=== PATIENT | male | born 1980 | race Hispanic/Latino ===

== ENCOUNTER 2017-09-04 20:36 | Emergency (ER) | payer OTHER ==
[~2017-09-04] VITALS: Ht 175.3 cm; Wt 90.7 kg
[~2017-09-04 20:36] MED LIST: LEVSIN/SL0.125 MG SL; MEDROL4 M2 PO; MOTRIN 600 MG600 MG PO; PROAIR HFA8.5 GM INH; ZOFRAN4 M1 SL
--- NOTE | 2017-09-04 20:59 | ED CARDIAC/CP/PALPITATIONS ---
History of Present Illness General Chief Complaint: General Adult Stated Complaint: "CP, RT SIDE EYE TWITCHING, RT SIDE JAW NUMB" Source: patient Exam Limitations: no limitations Vital Signs & Intake/Output Vital Signs & Intake/Output Vital Signs Date Time Temp Pulse Resp B/P B/P Pulse O2 O2 Flow FiO2 Mean Ox Delivery Rate 09/04 2140 98.2 108 20 137/66 99 Room Air 09/04 2044 98.0 115 20 146/94 98 Room Air ED Intake and Output 09/05 0000 09/04 1200 Intake Total Output Total Balance Patient 200 lb Weight Weight Reported by Patient Measurement Method Allergies Coded Allergies: shrimp (Severe, ANAPHYLAXIS 12/09/16) shellfish derived (ANAPHYLAXIS 12/09/16) Reconcile Medications Albuterol Sulfate (Proair Hfa) 90 MCG HFA.AER.AD 2 PUF INH Q4-6 PRN PRN bronchitis Methylprednisolone. (Medrol) 4 MG TAB.DS.PK 1 DP PO AD bronchits 6 on day 1 then reduce by one tablet daily until gone Triage Note: PT TO ED C/O PALPITAIONS, RT SIDE EYE TWITCHING AND RT SIDE AW NUMBNESS SINCE 1899. STATES IS UNDER A LOT OF STRESS "I'M GETTING SEPERATED AND MY HAS THE KIDS" TOOK A FRIEND'S LAMICTAL 300 MG (3 PILSS) LAST AT APPROX 2 PM. DRANK 4 CUPS OF ESSPRESSO COFFEE LAST AT 1500. HAD AN ENERGY DRINK AT 1730. HAS BEEN ON RAVI DIET FOR A MONTH. "I HAD A LOT OF OLIVE OIL TODAY" STATES HAD CHEST PAIN EARLIER, DENIES CHEST PAIN AT THIS TIME "I STILL FEEL MY HEART POUNDING" HR 115 IN TRIAGE. STATES NUMBNESS AND EYE TWITCHING HAS IMPROVED. DR MCGARRY IN TRIAGE TO EVAL PATIENT PT VERY ANXIOUS IN TRIAGE "AM I GOING TO ?" DENIES DRUGS Triage Nurses Notes Reviewed? yes HPI: 36M no PMH presenting with multiple complaints, including left sided chest pain at rest that lasted about 30 minutes and has now resolved, right jaw numbness that has now resolved, anxiety, agitated, right eye twitches (also resolved), and chills that started about 5 minutes ago. He is on a high protein low carb diet, today drank 4 espresso drinks, a large energy drink, felt very anxious so took 900mg of his friends ER Lamictal. He has no personal or family cardiac history, and smokes ~6 cigarettes per day. He is typically active and never has chest pain or dyspnea with exertion. He denies using illicit drugs. (Avril Mcgarry MD) Past History Travel History Traveled to [place] past 21 day No Medical History Any Pertinent Medical History? see below for history Neurological: NONE EENT: NONE Cardiovascular: NONE Respiratory: NONE Gastrointestinal: DIVERTICULITIS COLOSTOMY WITH REVERSAL Hepatic: NONE Renal: NONE Musculoskeletal: NONE Psychiatric: NONE Endocrine: NONE Blood Disorders: NONE Cancer(s): NONE AIRCRAFT FUELER/Reproductive: NONE History of MRSA: No History of VRE: No History of CDIFF: No Surgical History Surgical History: JAXSON'S Psychosocial History Who do you live with Family Services at Home None What is your primary language Upper Sorbian Tobacco Use: Current Daily Use Daily Tobacco Use Amount/Type: => 5 Cigarettes daily ETOH Use: denies use Illicit Drug Use: denies illicit drug use Family History Hx Contributory? No (Avril Mcgarry MD) Review of Systems Review of Systems Constitutional: Reports: no symptoms. EENTM: Reports: no symptoms. Respiratory: Reports: no symptoms. Cardiovascular: Reports: no symptoms. GI: Reports: no symptoms. Genitourinary: Reports: no symptoms. Musculoskeletal: Reports: no symptoms. Skin: Reports: no symptoms. Neurological/Psychological: Reports: no symptoms. Hematologic/Endocrine: Reports: no symptoms. Immunologic/Allergic: Reports: no symptoms. All Other Systems: Reviewed and Negative (Avril Mcgarry MD) Physical Exam Physical Exam General Appearance: well developed/nourished, mild distress Head: atraumatic, normal appearance Eyes: Bilateral: normal appearance, PERRL, EOMI. Ears, Nose, Throat: normal pharynx, normal ENT inspection Neck: normal inspection, supple, full range of motion Respiratory: normal breath sounds, no respiratory distress Cardiovascular: regular rate/rhythm Gastrointestinal: soft, non-tender Back: normal inspection, normal range of motion Extremities: normal inspection, normal capillary refill Neurologic/Psych: awake, alert, oriented x 3, normal mood/affect Skin: intact, normal color, warm/dry Core Measures ACS in differential dx? No CVA/TIA Diagnosis No Sepsis Present: No Sepsis Focused Exam Completed? No (Avril Mcgarry MD) Progress Differential Diagnosis: AMI, aortic dissection, atrial fibrillation, cholecystitis, CHF/pulm edema, costochondritis, hyperkalemia, hypovolemia, hyperthyroid, hyperventilation, intracranial hemorrhage, musculoskeletal pain, myocarditis, pancreatitis, pericarditis, pneumonia, pneumothorax, PSVT, pulmonary embolism, PUD/GERD, PVCs/PACs, respiratory failure, rib fracture, sepsis, unstable angina, V-fib/V-Tach, WPW syndrome Plan of Care: Orders Procedure Date/time Status TROPONIN LEVEL 09/05 0000 Complete EKG 09/05 0000 Active URINE DRUG SCREEN FOR ER ONLY 09/05 2111 Complete TROPONIN LEVEL 09/05 2047 Complete LIPASE 09/05 2047 Complete HEPATIC FUNCTION PANEL 09/05 2047 Complete D-DIMER 09/05 2047 Complete CBC WITHOUT DIFFERENTIAL 09/05 2047 Complete BASIC METABOLIC PANEL 09/05 2047 Complete AMYLASE 09/05 2047 Complete EKG 09/04 2038 Active Laboratory Tests 09/05/17 0010: Troponin I < 0.01 09/04/17 2236: Urine Opiates Screen < 100, Methadone Screen < 40, Barbiturate Screen < 60, Ur Phencyclidine Scrn < 6.00, Amphetamines Screen < 100, U Benzodiazepines Scrn < 85, Urine Cocaine Screen < 50, Urine Cannabis Screen 23.60 09/04/17 2100: Anion Gap 14, Estimated GFR > 60, BUN/Creatinine Ratio 14.0, Glucose 100 H, Calcium 9.4, Total Bilirubin 0.5, Direct Bilirubin 0.5 H, AST 24, ALT 26, Alkaline Phosphatase 59, Troponin I < 0.01, Total Protein 7.4, Albumin 4.7, Amylase 67, Lipase 70, D-Dimer High Sensitivty < 200, CBC w Diff NO MAN DIFF REQ , RBC 5.28, MCV 89.4, MCH 30.0, MCHC 33.6, RDW 13.5, MPV 8.4, Gran % 64.7, Lymphocytes % 23.8, Monocytes % 7.5, Eosinophils % 3.2, Basophils % 0.8, Absolute Granulocytes 5.6, Absolute Lymphocytes 2.1, Absolute Monocytes 0.6, Absolute Eosinophils 0.3, Absolute Basophils 0.1 Initial ED EKG: SINUS TACH, SLIGHTLY WIDE QRS UNCHANGED FROM PRIOR (Yovani ALARCON,Avril) Departure Departure Disposition: HOME OR SELF CARE Condition: Stable Clinical Impression Primary Impression: Panic attack Secondary Impressions: Chest pain at rest, Sinus tachycardia Referrals: Patient Has No Primary Care Dr (PCP/Family) Additional Instructions: Follow up with your PCP. Return to ER if you have any new or worsening symptoms. Cut down on your caffeine intake. Do not take other people's medications, as they can have unknown and dangerous side effects. Departure Forms: Customer Survey General Discharge Information (Yovani ALARCON,Avril) Departure Comments 09/05/17, 1:08am... pt signed out to me... negative trop/ekg x 2... pt is chest pain free, feeling better, safe for discharge, close follow up advised. (Carolina ALARCON,Cholo Baptiste) Critical Care Note Critical Care Note Critical Care Time: non-applicable (Carolina ALARCON,Cholo Baptiste)
[2017-09-04 21:08] LABS: ABSOLUTE BASOPHIL COUNT 0.1 /CUMM (0.0-0.2); ABSOLUTE EOSINOPHIL COUNT 0.3 /CUMM (0.0-0.7); ABSOLUTE GRANULOCYTE CT 5.6 /CUMM (1.4-6.5); ABSOLUTE LYMPH COUNT 2.1 /CUMM (1.2-3.4); ABSOLUTE MONOCYTE COUNT 0.6 /CUMM (0.10-0.60); BASOPHIL % 0.8 % (0.0-2.0); EOSINOPHIL % 3.2 % (0-5); GRANULOCYTE % 64.7 % (42.2-75.2); HEMATOCRIT 47.2 % (42-52); MEAN CORPUSCULAR HGB CONC 33.6 G/DL (33.0-37.0); MEAN CORPUSCULAR VOLUME 89.4 FL (80.0-94.0); MEAN PLATELET VOLUME 8.4 FL (7.4-10.4); PLATELET COUNT 232 /CUMM (130-400); RBC DISTRIBUTION WIDTH 13.5 % (11.5-14.5); RED BLOOD CELL CT 5.28 /CUMM (4.70-6.10); WHITE BLOOD CELL COUNT 8.6 /CUMM (4.8-10.8)
--- NOTE | 2017-09-04 21:28 | RADIOLOGY REPORT ---
EXAMINATION: XR PORTABLE CHEST CLINICAL INFORMATION: Chest pain COMPARISON: None TECHNIQUE: Portable frontal view of the chest was obtained. FINDINGS: No significant abnormality is noted involving the heart, lungs, mediastinum, bony thorax or soft tissues. IMPRESSION: Unremarkable examination.
[2017-09-05 01:22] VITALS: BP 128/82
== END 2017-09-05 01:24 ==
LOC: ERH 20:36
PROVIDERS: Pediatrics
DX: F41.0 Panic disorder [episodic paroxysmal anxiety] (principal); R00.0 Tachycardia, unspecified; R07.9 Chest pain, unspecified
CPT/HCPCS: 71045; 80307; 93005; 93010

== ENCOUNTER 2017-11-15 13:30 | Emergency (ER) | payer OTHER ==
[~2017-11-15] VITALS: Ht 177.8 cm; Wt 86.2 kg
--- NOTE | 2017-11-15 14:34 | ED GI/GU/ABDOMINAL COMPLAINT ---
History of Present Illness General Chief Complaint: Abdominal Pain/Flank Pain Stated Complaint: ABD PAIN Source: patient, old records Exam Limitations: no limitations Vital Signs & Intake/Output Vital Signs & Intake/Output Vital Signs Date Time Temp Pulse Resp B/P B/P Pulse O2 O2 Flow FiO2 Mean Ox Delivery Rate 11/15 1527 97.8 84 17 132/88 98 Room Air 11/15 1334 97.6 80 18 149/104 96 Room Air Allergies Coded Allergies: shrimp (Severe, ANAPHYLAXIS 12/09/16) shellfish derived (ANAPHYLAXIS 12/09/16) Reconcile Medications No Known Home Medications Triage Note: 37 YEAR OLD MALE STATES THAT HE HAS HISTORY OF BOWEL RESECTION AND COLOSTOMY REVERSAL AND WAS ADMITTED LAST YEAR FOR BOWEL OBSTRUCTION, HAS NOT HAD NORMAL BM IN A FEW DAYS , DID HAVE DIARHEA THIS AM, COMPLAINS OF DIFFUSE ABD PAIN AND NAUSEA Triage Nurses Notes Reviewed? yes Onset: 3 days Duration: day(s):, constant, continues in ED Timing: recent history Quality/Severity: sharpness, severe Location: left lower quadrant, right lower quadrant Radiation: no radiation Activities at Onset: rest Prior Abdominal Problems: similar symptoms Past Sexual History: Unobtainable at this time Modifying Factors: Worsens With: palpation. Associated Symptoms: abdominal pain, diarrhea, loss of appetite, nausea/vomiting HPI: 3 days prior to admission patient complains of frequent loose watery stool anorexia nausea bilateral lower abdominal discomfort mild crampy nonradiating. Prior to admission the abdominal discomfort became worse. He denies fever chills vomiting chest pain cough shortness of breath headache dysuria rash bleeding. Past History Travel History Traveled to [place] past 21 day No Medical History Any Pertinent Medical History? see below for history Neurological: NONE EENT: NONE Cardiovascular: NONE Respiratory: NONE Gastrointestinal: DIVERTICULITIS COLOSTOMY WITH REVERSAL Hepatic: NONE Renal: NONE Musculoskeletal: NONE Psychiatric: NONE Endocrine: NONE Blood Disorders: NONE Cancer(s): NONE SURGICAL SCRUB TECHNOLOGIST/Reproductive: NONE History of MRSA: No History of VRE: No History of CDIFF: No Surgical History Surgical History: JAXSON'S Psychosocial History Who do you live with Family Services at Home None What is your primary language Khmer Tobacco Use: Current Daily Use Daily Tobacco Use Amount/Type: => 5 Cigarettes daily ETOH Use: denies use Illicit Drug Use: denies illicit drug use Family History Hx Contributory? No Review of Systems Review of Systems Constitutional: Reports: no symptoms. EENTM: Reports: no symptoms. Respiratory: Reports: no symptoms. Cardiovascular: Reports: no symptoms. GI: Reports: see HPI, abdominal pain, diarrhea, nausea. Genitourinary: Reports: no symptoms. Musculoskeletal: Reports: no symptoms. Skin: Reports: no symptoms. Neurological/Psychological: Reports: no symptoms. Hematologic/Endocrine: Reports: no symptoms. Immunologic/Allergic: Reports: no symptoms. All Other Systems: Reviewed and Negative Physical Exam Physical Exam General Appearance: well developed/nourished, alert, awake, anxious, moderate distress Head: atraumatic, normal appearance Eyes: Bilateral: normal appearance, PERRL, EOMI, normal inspection. Ears, Nose, Throat, Mouth: hearing grossly normal, dry mucous membranes Neck: normal inspection, supple, full range of motion, normal alignment Respiratory: normal breath sounds, chest non-tender, no respiratory distress, quiet respiration, lungs clear Cardiovascular: regular rate/rhythm, normal peripheral pulses, irregularly irregular Peripheral Pulses: 4+ carotid (R), 4+ carotid (L) Gastrointestinal: soft, no organomegaly, abnormal bowel sounds, guarding, tenderness (bilateral lower quadrant) Male Genitals: normal genitalia Back: normal inspection, normal range of motion, no vertebral tenderness Extremities: normal range of motion, no ligament instability Neurologic/Psych: no motor/sensory deficits, awake, alert, oriented x 3, normal gait, normal mood/affect, 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 No Sepsis Present: No Sepsis Focused Exam Completed? No Progress Differential Diagnosis: appendicitis, biliary colic, bowel obstruction, cholecystitis, diverticulitis, pancreatitis Plan of Care: Orders Procedure Date/time Status LIPASE 11/15 1416 Complete COMPREHENSIVE METABOLIC PANEL 11/15 1416 Complete CBC WITHOUT DIFFERENTIAL 11/15 1416 Complete Laboratory Tests 11/15/17 1425: Anion Gap 10, Estimated GFR > 60, BUN/Creatinine Ratio 16.3, Glucose 103 H, Calcium 9.2, Total Bilirubin 0.6, AST 27, ALT 31, Alkaline Phosphatase 39, Total Protein 6.8, Albumin 4.1, Globulin 2.7, Albumin/Globulin Ratio 1.5, Lipase 49, CBC w Diff NO MAN DIFF REQ, RBC 5.29, MCV 89.7, MCH 29.8, MCHC 33.2, RDW 13.9, MPV 8.3, Gran % 62.1, Lymphocytes % 23.6, Monocytes % 8.9, Eosinophils % 4.9, Basophils % 0.5, Absolute Granulocytes 3.5, Absolute Lymphocytes 1.3, Absolute Monocytes 0.5, Absolute Eosinophils 0.3, Absolute Basophils 0 Diagnostic Imaging: Viewed by Me: CT Scan. Discussed w/RAD: CT Scan. Radiology Impression: No evidence of recurrent small bowel obstruction. Also, no evidence of diverticulitis or colitis. No specific source of pain is identified. No acute imaging abnormalities in the abdomen or pelvis. Initial ED EKG: none Departure Departure Time of Disposition: 1604 Disposition: HOME OR SELF CARE Condition: Stable Clinical Impression Primary Impression: Diarrhea Secondary Impressions: Abdominal pain Referrals: Juan Manuel ALARCON,Ellis Downs (PCP/Family) Departure Forms: Customer Survey General Discharge Information RELEASE- WORK Prescriptions: Current Visit Scripts Ondansetron (Zofran Odt) 1 TAB SL TID #10 TAB Loperamide HCl (Imodium A-D) 0 PO SEE ADMIN CRITERIA PRN diarrhea #24 TAB 1 tab after each loose stool up to 7 per day Hyoscyamine Sulfate (Levsin-Sl) 1-2 TAB SL Q4P PRN abdominal pain #30 TAB
[2017-11-15 14:39] LABS: ABSOLUTE BASOPHIL COUNT 0 /CUMM (0.0-0.2); ABSOLUTE EOSINOPHIL COUNT 0.3 /CUMM (0.0-0.7); ABSOLUTE GRANULOCYTE CT 3.5 /CUMM (1.4-6.5); ABSOLUTE LYMPH COUNT 1.3 /CUMM (1.2-3.4); ABSOLUTE MONOCYTE COUNT 0.5 /CUMM (0.10-0.60); BASOPHIL % 0.5 % (0.0-2.0); EOSINOPHIL % 4.9 % (0-5); GRANULOCYTE % 62.1 % (42.2-75.2); HEMATOCRIT 47.4 % (42-52); MEAN CORPUSCULAR HGB 29.8 PG (27.0-31.0); MEAN CORPUSCULAR HGB CONC 33.2 G/DL (33.0-37.0); MEAN CORPUSCULAR VOLUME 89.7 FL (80.0-94.0); MEAN PLATELET VOLUME 8.3 FL (7.4-10.4); PLATELET COUNT 210 /CUMM (130-400); RBC DISTRIBUTION WIDTH 13.9 % (11.5-14.5); RED BLOOD CELL CT 5.29 /CUMM (4.70-6.10); WHITE BLOOD CELL COUNT 5.7 /CUMM (4.8-10.8)
[2017-11-15 15:27] VITALS: BP 132/88
--- NOTE | 2017-11-15 15:56 | CT SCAN REPORT ---
EXAMINATION: CT ABDOMEN AND PELVIS WITH CONTRAST CLINICAL INFORMATION: Bilateral lower quadrant tenderness. Evaluate for diverticulitis or colitis. History of small bowel obstruction, bowel resection and colostomy reversal. COMPARISON: 01/16/2015 TECHNIQUE: Multidetector volumetric imaging was performed of the abdomen and pelvis following IV administration of 94 mL of Optiray 320 intravenous contrast. Sagittal and coronal reformatted images were obtained on the technologist's workstation. DLP: 632 mGy-cm FINDINGS: LUNG BASES: Minimal atelectasis in dependent aspect of each lower lobe. LIVER, GALLBLADDER, AND BILIARY TREE: Unremarkable. PANCREAS: Unremarkable. SPLEEN: Unremarkable. ADRENAL GLANDS: Unremarkable. KIDNEYS AND URETERS: Kidneys are normal in size and enhance symmetrically. No renal mass, nephrolithiasis, hydronephrosis or perinephric edema. BLADDER: Unremarkable. GASTROINTESTINAL TRACT: Intact sigmoid colon anastomosis. No bowel wall thickening in this region. Loops of bowel are normal in caliber. Appendix is normal. There is no evidence of acute inflammation or obstruction along the gastric intestinal tract. No pericolonic fat stranding, ascites, pneumoperitoneum or abscess. ABDOMINAL WALL: No abdominal wall hernia. LYMPH NODES: Normal. VASCULAR: Abdominal aorta is normal in caliber and the celiac trunk, SMA, FAISAL and renal arteries are widely patent. There is a circumaortic left renal vein. PELVIC VISCERA: Prostate gland is grossly unremarkable. No pelvic mass or free fluid. OSSEOUS STRUCTURES: Multilevel degenerative arthropathy of the thoracolumbar spine. Again noted are the posterior disc osteophyte complexes of L4-L5 and L5-S1 and vacuum disc degenerative change at L5-S1. No suspicious bone lesions. IMPRESSION: No evidence of recurrent small bowel obstruction. Also, no evidence of diverticulitis or colitis. No specific source of pain is identified. No acute imaging abnormalities in the abdomen or pelvis.
[2017-11-15] MEDS ORDERED: IMODIUM A-D2 M1 PO (16:06)
[2017-11-15] MEDS ORDERED: ZOFRAN ODT4 M1 SL (16:06)
[2017-11-15] MEDS ORDERED: LEVSIN-SL0.125 MG SL (16:06)
== END 2017-11-15 16:12 ==
LOC: ERH 13:30
PROVIDERS: Emergency Medicine
DX: R19.7 Diarrhea, unspecified (principal); R10.31 Right lower quadrant pain; R10.32 Left lower quadrant pain
CPT/HCPCS: 74177; 96374; 96375; J1885; J2405